=== PATIENT | male | born 1995 | race Caucasian/White ===

== ENCOUNTER 2020-01-09 18:29 | Emergency (ER) | payer OTHER ==
[~2020-01-09] VITALS: Ht 182.9 cm; Wt 83.9 kg
[~2020-01-09 18:29] MED LIST: AUGMENTIN1 TA2 PO; ZOF4 PO
[2020-01-09 18:32] VITALS: Ht 182.9 cm; Wt 83.9 kg
[2020-01-09 21:23] VITALS: BP 92/49
== END 2020-01-09 21:23 | disposition home or self-care (01) ==
LOC: ED 18:29
DX: T40.601A Poisoning by unspecified narcotics, accidental (unintentional), initial encounter (principal); F17.210 Nicotine dependence, cigarettes, uncomplicated; Z90.89 Acquired absence of other organs; Y92.89 Other specified places as the place of occurrence of the external cause
CPT/HCPCS: 99406; Q0092